=== PATIENT | female | born 1960 | race Caucasian/White ===

== ENCOUNTER 2024-02-26 13:22 | Emergency (ER) | payer OTHER, SELFPAY ==
[2024-02-26 13:24] VITALS: BP 216/83; PULSE 121; RESP 14; TEMP 36.5; O2SAT 96
[2024-02-26 13:36] VITALS: BP 216/83; PULSE 121; RESP 14; TEMP 36.5; O2SAT 96
[2024-02-26 13:37] VITALS: RESP 16
[2024-02-26 13:43] VITALS: BP 189/65; PULSE 121
[2024-02-26 14:36] VITALS: BP 156/62; PULSE 97; O2SAT 98
[2024-02-26 14:57] VITALS: BP 156/62; PULSE 97; O2SAT 98
--- NOTE | 2024-02-26 15:07 | NUR.NOTE ---
Referral faxed to [employer] business applications analyst for telephone call. Needs PCP, establish care, high blood pressure, in 7 to 10 days. Nursing Note:
--- NOTE | 2024-02-26 15:20 | W.ED.GENAD ---
Discharge Plan Disposition Patient Disposition: Home Discharge Details Clinical Impression: Elevated blood pressure reading with diagnosis of hypertension, Skin irritation Primary Care Provider: Unknown,Unknown ED Provider: Tomas Renae Home Meds and New Rx's Prescriptions: Continued lisinopril 20 mg tablet 20 mg PO DAILY Discharge Instructions Instructions: Hypertension (ED) Additional Instructions: You are seen in the emergency department for elevated blood pressure. As we discussed please continue taking your blood pressure pill as previously prescribed. A referral has been placed for primary care provider. Please keep a journal of your blood pressure at the same time every day. If you develop chest pain or if you pass out please return to the emergency department. If you develop a rash or any swelling in your armpits please return to the emergency department. Please also return if you develop fever. Discharge Data Discharge Date/Time-TO BE ENTERED AT DEPARTURE: 02/26/24 15:33 HPI General Date/Time Provider Initiated Documentation: 02/26/24 13:30. HPI Narrative: MDM This is an overall very well-appearing normothermic and initially tachycardic 64-year-old female with history of hypertension with elevated blood pressure and presentation reassuring against hypertensive emergency. Tachycardia and hypertension resolved in the ED without intervention. No pain out of proportion to suggest necrotizing soft tissue infection. No nausea nor vomiting so my suspicion for acute electrolyte abnormalities is low so I did not feel that the patient required assessment of her electrolytes. No hematuria so my suspicion for acute kidney injury was low so I did not feel that the patient required assessment of her renal function. No chest pain to suggest ACS so I did not feel that the patient required an ECG. No headache to suggest CVA so I did not feel that the patient required a CT head. No syncope though the patient did have a mild systolic ejection murmur and she will likely benefit from an outpatient echocardiogram with primary care. No signs of volume overload to suggest acute heart failure so I did not feel that the patient required diuretics nor a limited bedside ultrasound. Concerning her skin irritation she has no erythema to suggest cellulitis so I did not feel that she required antibiotics. I explained to the patient that she certainly could be early on in a concerning process with her skin in her axilla and then if she developed any blisters redness worsening pain that she should return to the emergency department. No bullae to suggest Renner-Sergio's nor TEN. No fluctuance to suggest abscess I did not feel that she required incision and drainage. She has recently been shaving her armpits and it could be possible that she has some irritation from this. I counseled her on using some Vaseline to prevent her skin from rubbing. I advised ED return for chest pain shortness of breath and any redness or any swelling in her armpits. I asked health insulation power unit tender to have the patient establish with a PCP she reportedly does not have a PCP. Patient understood her return indications and she was discharged with an empiric trial of expectant outpatient management. Chronic conditions affecting the care of the patient: Elevated blood pressure History obtained from an outside historian: N/A External record review: No [facility] [place] EMR records Medications: N/A Social determinants of health affecting disposition: N/A Management discussed with: N/A Treatment/interventions considered: N/A Response to therapies provided: N/A HPI This is 64-year-old female with history of elevated blood pressure on 20 mg of daily lisinopril, which he took this morning, arriving to the emergency department in the setting of elevated blood pressure and a bilateral burning sensation in her axilla left greater than right. Patient reports that her blood pressure has been elevated for the past approximately 1 week. She denies any syncope. No chest pain. No shortness of breath. No headache. She occasionally drinks alcohol but denies routine tobacco and illicits. She also notes that she has had some irritation in her bilateral armpits for the past approximately 1 week. She is attempting to to improve her symptoms by changing her dryer sheets and her deodorant. Her right arm has improved slightly but her left arm still feels irritated. She has not noticed any redness or swelling. No nausea vomiting nor fevers. Exam General: Well-appearing in no acute distress speaking in complete sentences. Head: Normocephalic, atraumatic. Eye: Extraocular eye movements intact. No conjunctival injection. No scleral icterus. Ear, nose, mouth, throat: Grossly normal inspection. Normal voice, handling secretions normally. Neck: Trachea midline. Cardiovascular: Well-perfused distal extremities. Regular rate and rhythm. Systolic ejection murmur 3 out of 6 left sternal border. Respiratory: Nonlabored respiration. Clear lungs bilaterally. Gastrointestinal: Nondistended abdomen. Musculoskeletal: No edema. Moving all 4 extremities spontaneously. Skin: Bilateral axilla appear recently shaved. No significant erythema. No significant fluctuance. No swelling. No obvious acute abnormalities. Neurologic: Alert and appropriate, no apparent acute deficits. Cranial nerves II through XII intact grossly. Psychiatric: Mood and manner are appropriate. Grooming and personal hygiene are appropriate. Related Data Home Medications Medication Instructions Recorded Confirmed lisinopril 20 mg tablet 20 mg PO DAILY 02/26/24 02/26/24 Allergies Allergy/AdvReac Type Severity Reaction Status Date / Time No Known Allergies Allergy Unverified 02/26/24 13:36 General Stated Complaint: GenMedical MARCEL: 3 Course Vital Signs Vital signs: Vital Signs Temperature 36.5 C 02/26/24 13:24 Pulse 121 H 02/26/24 13:24 Respiratory Rate 14 02/26/24 13:24 Blood Pressure 216/83 H 02/26/24 13:24 Pulse Oximetry 96 02/26/24 13:24 Temperature 36.5 C 02/26/24 13:36 Temperature Source Temporal Artery Scan 02/26/24 13:36 Pulse 97 H 02/26/24 14:57 Respiratory Rate 16 02/26/24 13:37 Respiratory Effort Normal, Non-Labored 02/26/24 13:40 Respiratory Depth Normal 02/26/24 13:37 Respiratory Pattern Normal 02/26/24 13:37 Blood Pressure 156/62 H 02/26/24 14:57 Pulse Oximetry 98 02/26/24 14:57 Oxygen Delivery Method Room Air 02/26/24 14:36 Oxygen Flow Rate 0 02/26/24 14:36 Pain Level 0 02/26/24 14:57 Medical Decision Making Quality:SDOH Health Related Social Needs: No Data to Display PFSH All Active Problems (Updated 02/26/24 @ 15:22 by Tomas Renae MD) Skin irritation (Acute) Elevated blood pressure reading with diagnosis of hypertension (Acute) Social History Smoking/Tobacco Use Status: Former Tobacco Use Smoking risk assessment performed?: Yes Alcohol Intake: current Alcohol Intake frequency: a few times a week Alcohol type: beer Drug use: Never Substance use type: does not use Housing: house Do you feel safe at home: Yes Do you feel safe in your relationship?: Yes PAWSS Have you Been Recently Intoxicated or Drunk Within the Last 30 days?: No Have you Ever Experienced Previous Episodes of Alcohol Withdrawal?: No Have you ever Experienced Withdrawal Seizures?: No Have you ever Experienced Delirium Tremens(DT)s?: No Have you ever undergone Alcohol Rehabilitation Treatment (i.e, inpt ot outpatient treatment programs)?: No Have you ever Experienced Blackouts?: No Have you ever Combined Alcohol with other Downers within the last 90 days?: No Have you ever Combined Alcohol with any other Substance of Abuse during the last 90 days?: No Positive Blood Alcohol level on Presentation? [PCS.BAL]: No Evidence of Increased Autonomic Activity (i.e. HR>120, tremor, sweating, agitation, nausea)?: No Result: 0
== END 2024-02-26 15:33 | disposition home or self-care (01) ==
PROVIDERS: Emergency Provider Emergency Medicine
DX: I10 Essential (primary) hypertension (principal); L53.9 Erythematous condition, unspecified; Z79.899 Other long term (current) drug therapy; Z87.891 Personal history of nicotine dependence
CPT/HCPCS: 99283